=== PATIENT | female | born 1935 | race Caucasian/White ===

== ENCOUNTER 2024-04-04 21:10 | Inpatient (IN) | payer OTHER, SELFPAY ==
[2024-04-04 17:00] VITALS: BP 119/59
[2024-04-04 17:05] VITALS: BMI 35.0
--- NOTE | 2024-04-04 17:53 | EDRN ---
Received patient on stretcher with c/o right hip pain after she tripped and fell. Patient stated that she was carrying in grocery bags. Patient is not sure if she hit her head. Patient is on Eliquis. Patient also with c/o left hip pain when she
tries to move her right leg.
[2024-04-04 18:00] VITALS: BP 108/93
--- NOTE | 2024-04-04 18:11 | ED.GENMED ---
History of Present Illness
General
Chief Complaint: Fall
Time Seen by Provider: 04/04/24 17:34
Travel History
Have you had any contact with someone who has COVID-19?: No
Do you have any symptoms of coronavirus? Fever > 100 degrees, chills, cough, shortness of breath, sore throat, loss of taste or smell, muscle aches, or headache?: No
History of Present Illness
History of Present Illness:
88-year-old female with history of A-fib on Eliquis presents to the emergency department for evaluation after a fall, she lost her balance and fell onto her right side, did strike her head. She is on Eliquis and took this morning. Pain is
predominantly to the right groin. She is unable to move the right leg. Denies any loss of consciousness, vision changes, neck pain, chest pain, or shortness of breath.
Past History
Past History
ED Past Medical History: Other (Mitral regurgitation)
ED Past Surgical History: Bowel resection, Cardiac (Stent) and Cholecystectomy
Social History
Personal:
Living: with family
Review of Systems
Review of Systems
Allergies reviewed?: Yes
All Other Systems: ROS reviewed and negative except as documented in HPI and ROS
Phy Exam
Physical Exam
Physical Exam:
GEN: Well appearing, NAD, WDWN
Eyes: PERRLA, EOMs intact, no scleral icterus
HENT: NCAT, oral mucosa moist
Lungs: CTAB, no wheezes, rales, rhonchi, normal chest wall excursion
Cardiac: RRR, no M/R/G, no peripheral edema. Radial pulses 2+ bilat
Abdomen: S, NT, ND, NABS, no masses or hepatosplenomegaly
Neuro: Alert and oriented x 3, nerve deficits, bilateral upper extremity strength is hollis. Unable to assess the right lower extremity secondary to suspected hip fracture
MSK: Obvious shortening and external rotation of the right hip
Skin: No rashes, petechiae. Normal color, no pallor or jaundice.
Psych: Calm, cooperative, proper hygiene
Course
Orders/Labs/Results
Orders:
Orders
04/04/24 Dinner
Regular
At Your Request: Full Participation
04/04/24 18:10
CT Head W/o Iv Contrast Urgent
Comment:
Reason For Exam: fall head injury
CR Hip - RT w/wo Pel 2-3 Vw* Urgent
Comment:
Reason For Exam: fall
Include a pelvis x-ray?: Yes
04/04/24 18:29
Complete Blood Count/With Diff Urgent
Comprehensive Metabolic Panel Urgent
04/04/24 18:39
Morphine Sulfate 4 mg IV NOW STA
04/04/24 18:42
0.9% Sodium Chloride 500 ml [Nss] 500 ml IV BOLUS
04/04/24 20:54
EKG [Electrocardiogram (*1)] Urgent
Reason for Study: PreOp
04/04/24 20:55
ORTHOPEDIC CONSULT Routine
Consulting Provider: Erwin Iglesias
Was physician already notified: Yes
Reason for consult: fall right femur
04/04/24 20:56
Admit/Transfer Patient As Directed
Co-Sign Provider:
Level of Care: Inpatient admission
Assign to:: Telemetry
Physician / Group: karina hernandez
Diagnosis: mechan fall w/right femoral fx, afib on eliquis
Reason for Telemetry: Arrhythmia
Date to Stop Telemetry: 04/07/24
Time to Stop Telemetry: 11:00
Reason for Hospitalization: mechan fall w/right femoral fx, afib on eliquis
Expected length of stay greater than two midnights?: Yes
ELOS- Estimated Length of Stay in days: 4
I certify the patient meets the requirements for IP care: Yes
04/04/24 20:57
Code Status As Directed
Resuscitation Status: Full Code
04/04/24 22:12
Acetaminophen [Tylenol] 650 mg PO Q4HPRN PRN
Bisacodyl [Dulcolax] 10 mg RECTAL [id number] PRN
Docusate W/Senna [Senokot-S] 1 tablet PO BIDPRN PRN
Morphine Sulfate 2 mg IV Q4HPRN PRN
Morphine Sulfate 4 mg IV Q4HPRN PRN
Ondansetron Injectable [Zofran] 4 mg IV Q6HPRN PRN
Polyethylene Glycol Powder [Miralax] 17 grams PO DAILYPRN PRN
04/04/24 22:12
Activity As Directed
Activity Level: Bedrest
Intake/ Output As Directed
Frequency: Per unit guidelines
Pneumatic Compression Sleeves As Directed
Type: Knee high
Vital Signs As Directed
Frequency: Per unit guidelines
Ot Eval And Treat Routine
Pt Eval And Treat Routine
Activity Level: Bedrest
DX Deep Vein Thrombosis Video Routine
04/04/24 22:30
Atorvastatin [Lipitor] 30 mg PO HS
04/05/24 06:00
Basic Metabolic Panel IN AM
Complete Blood Count/With Diff IN AM
04/05/24 08:00
Ascorbic Acid [Vitamin C] 1,000 mg PO DAILY
Ezetimibe [Zetia] 10 mg PO DAILY
Lactobac/Bifidobac [Visbiome] 1 cap PO DAILY
Metoprolol Xl [Toprol Xl] 25 mg PO DAILY
Thyroid [[place] Thyroid] 60 mg PO DAILY
Zinc Sulfate 2,200 mg PO DAILY
04/06/24 Breakfast
NPO
Allow oral meds: Yes
Allow clear liquids: No
NPO with Ice Chips: No
Basic Metabolic Panel IN AM
Complete Blood Count/With Diff IN AM
04/07/24 06:00
Basic Metabolic Panel IN AM
Complete Blood Count/With Diff IN AM
04/07/24 11:00
DC Protocol for Telemetry ONCE
Abnormal Lab Results
04/04/24
18:29
MCHC 32.5 L g/dL
(33.0-37.0)
Absolute Neuts (auto) 6.6 H 10^3/uL
(1.4-6.5)
Absolute Monos (auto) 0.7 H 10^3/uL
(0.1-0.6)
Lymphocytes % 18.3 L %
(20.5-51.1)
Chloride 108 H mmol/L
(98-107)
BUN 20 H mg/dl
(7-17)
Calcium 7.9 L mg/dl
(8.4-10.2)
Total Protein 5.6 L g/dl
(6.3-8.2)
Albumin 3.1 L g/dl
(3.5-5.0)
04/04/24 18:29
04/04/24 18:29
Vital Signs
Initial and Last Documented VS:
Initial Vital Signs
Temp Pulse Resp BP Pulse Ox
97.7 F 83 22 119/59 93
04/04/24 17:00 04/04/24 17:00 04/04/24 17:00 04/04/24 17:00 04/04/24 17:00
Last Documented Vital Signs
Temp Pulse Resp BP Pulse Ox
98.1 F 90 16 130/62 96
04/04/24 22:36 04/04/24 22:36 04/04/24 22:36 04/04/24 22:36 04/04/24 22:36
MDM/Problems Addressed
MDM/Problems Addressed:
X-ray of the right hip and pelvis independently interpreted by shows a comminuted and displaced right intertrochanteric fracture. Orthopedics was made aware, tentatively plan for operating intervention tomorrow. Will admit to the hospitalist
service for further medical clearance.
*Critical Care Note
Total Time (30-74mins, 75-104mins- exclusive of procedures): Not Applicable
ED Attending Note
-
Portions of this chart may have been created with voice recognition software.� Occasional wrong word or��sound alike� substitutions may have occurred due to the inherent limitations of voice recognition software.
Discharge Plan
Departure
Patient Disposition: Admit
Date of Disposition: 04/04/24
Time of Disposition: 20:10
Admit to: Med/Surg
Presentation/result/management discussed w/ accepting MD/DO: Hospitalist
Discharge Problem:
Closed intertrochanteric fracture of right femur
Interventions
Interventions:
*Risk Screen - Suicide Last Done: 04/04/24 17:27
*General Assessment Last Done: 04/04/24 17:27
*Neglect/Abuse Screening Last Done: 04/04/24 17:27
ED- Fall Risk Assessment Last Done: 04/04/24 17:27
*ED COVID-19 Vaccine History Last Done: 04/04/24 17:27
*Nursing Disposition Last Done: 04/04/24 21:58
ED-Musculoskeletal Assessment Last Done: 04/04/24 18:40
ED- Neurological Assessment Last Done: 04/04/24 17:27
ED-Skin Assessment Last Done: 04/04/24 17:27
Discharge Date and Time
Discharge Date/Time: 04/04/24 21:59
[2024-04-04 18:38] LABS: % Basophils 0.6 % (0-2); % Immature Granulocytes 0.4 % (0-0.5); % Lymphocytes 18.3 % (20.5-51.1); % Monocytes 7.3 % (1.7-9.3); % Neutrophils 72.4 % (42.2-75.2); Absolute Basophils 0.1 10^3/uL (0-0.2); Absolute Eosinophils 0.1 10^3/uL (0-0.7); Absolute Lymphocytes 1.7 10^3/uL (1.2-3.4); Absolute Monocytes 0.7 10^3/uL (0.1-0.6); Absolute Neutrophils 6.6 10^3/uL (1.4-6.5); Hematocrit 41.5 % (37.0-47.0); Hemoglobin 13.5 g/dL (12.0-16.0); Mean Corp Hgb Conc. 32.5 g/dL (33.0-37.0); Mean Corpuscular Volume 95.4 fL (81.0-99.0); Mean Platelet Volume 9.7 fL (7.4-10.4); Nucleated Red Blood Cells % 0 %; Platelet Count 264 10^3/uL (130-400); Red Blood Cell Count 4.35 10^6/uL (4.20-5.40); Red Cell Dist. Width 14.5 % (11.5-14.5); White Blood Cell Count 9.1 10^3/uL (4.8-10.8)
[2024-04-04 18:49] LABS: ALT (SGPT) 20 U/L (0-35); AST (SGOT) 23 U/L (14-36); Albumin 3.1 g/dl (3.5-5.0); Alkaline Phosphatase 74 U/L (38-126); Blood Urea Nitrogen 20 mg/dl (7-17); Calcium 7.9 mg/dl (8.4-10.2); Carbon Dioxide 26 mmol/L (22-30); Chloride 108 mmol/L (98-107); Estimated Creatinine Clearance 71 ml/min; Glucose 83 mg/dl (70-99); Potassium 3.9 mmol/L (3.5-5.1); Sodium 138 mmol/L (135-145); Total Bilirubin 0.5 mg/dl (0.2-1.3); Total Protein 5.6 g/dl (6.3-8.2); eGFR > 60.00
[2024-04-04 19:00] VITALS: BP 98/63
[2024-04-04] MEDS: MORPHINE SULFATE 4 MG IV (19:08)
[2024-04-04] MEDS: NSS 500 IV (19:11)
--- NOTE | 2024-04-04 20:21 | HPS.HSE ---
Family Physician
-
Family Physician: Tory Pollock
Chief Complaint
-
Fall, right hip pain
History of Present Illness
88-year-old female reports she lost her balance while pulling groceries falling on her right side and did strike her head on hardwood floor. She denies any loss of consciousness but is complaining of pain in the right groin and right leg. In the
ER she was noted to have a right intertrochanteric femur fracture. She reports taking her Eliquis this morning at 10 AM 04/04/2024. She denies headache, blurred vision, neck pain, chest pain, palpitations, shortness of breath, cough, abdominal pain,
nausea, vomiting, diarrhea, urinary symptoms. She does have external rotation of her right lower extremity with +2 distal dorsal pedal pulses and sensation intact
She has past medical history of paroxysmal A-fib on current Eliquis, TIA, HTN, HLD, mitral regurgitation, bowel resection, CAD with cardiac stent 2005, chronic ambulatory dysfunction reports uses her to walk, hypothyroidism.
Medical History
Past Medical History
Past Medical History: Reports Other
Additional Past Medical History:
A-fib on current Eliquis
HTN
HLD
mitral regurgitation
bowel resection
CAD with cardiac stent 2005
ecoli sepsis 2005
Tia
hypothyroidism
Past Surgical History: Reports Other
Additional Past Surgical History:
CAD cardiac stent
Cholecystectomy
Bowel resection 2/2 diverticulitis
Social History
Tobacco: Non-smoker
Alcohol: None
Drug: None
Personal:
Living: With Family ( )
Employment: Retired
Family History
Family History: Other (mother cva )
Allergies / Home Medications
Allergies reflects when Allergies were last updated in [facility].
Home Medications with original date entered in [facility]
Allergy/Medication List:
Allergies
Allergy/AdvReac Type Severity Reaction Status Date / Time
Penicillins Allergy Rash Verified 04/04/24 17:02
'myocins' Allergy Unknown Uncoded 04/04/24 17:02
Home Medications
Lactobac no.2-Bifidobac no.1-S. thermo 112.5 billion cell capsule (Visbiome) 1 cap PO DAILY 04/04/24
apixaban 5 mg tablet (Eliquis) 5 mg PO BID 04/04/24
ascorbic acid (vitamin C) 1,000 mg tablet (Vitamin C) 1,000 mg PO DAILY 04/04/24
coenzyme Q10 100 mg capsule (CoQ-10) 100 mg PO Q72H 04/04/24
ezetimibe 10 mg tablet 10 mg PO DAILY 04/04/24
losartan 50 mg tablet 50 mg PO QPM 04/04/24
metoprolol succinate 25 mg tablet,extended release 24 hr 25 mg PO DAILY 04/04/24
simvastatin 20 mg tablet 60 mg PO HS 04/04/24
therapeutic multivitamin 1 tab PO DAILY 04/04/24
thyroid (pork) 60 mg tablet ([place] Thyroid) 60 mg PO DAILY 04/04/24
zinc sulfate 50 mg zinc (220 mg) capsule 50 mg PO DAILY 04/04/24
Review of Systems
-
History Source: Patient and Family (, daughter and son-in-law at bedside)
A 12 point ROS was completed and negative except as noted: Yes
Constitutional: Denies Fever, Fatigue or Chills
EENT: Denies Sore Throat or Runny Nose
Respiratory: Denies Cough or Trouble Breathing
Cardiac: Denies Chest Pain, Diaphoresis, Palpitations or Syncope
Abdomen/GI: Denies Abdominal Pain, Nausea, Vomiting, Diarrhea, Constipated, Bloody Stools or Black Stools
: Denies Dysuria, Frequency, Flank Pain, Incontinence, Difficulty Voiding or Urgency
Musculoskeletal: Reports Joint Pain (Right hip) and Other (Right leg with external rotation); Denies Edema
Physical Exam
Vital Signs
Vital Signs
Temp Pulse Resp BP Pulse Ox
97.7 F 75 19 98/63 98
04/04/24 17:00 04/04/24 19:15 04/04/24 19:15 04/04/24 19:00 04/04/24 19:15
Physical Exam
General: Comfortable and Conversant; No Pain, Fever or Chills
HEENT: NormoCephalic, Anicteric, Moist mucous membranes, PERRLA, [place] Conjunctivae, No Ptosis and Neck Nontender
Respiratory: Clear; No Wheezes, Rales or Rhonchi
Cardiac: S1/S2, Regular Rhythm and Murmur (2/6 systolic); No Rub, Gallop or Peripheral Edema
Breast: Deferred by me
GI: Soft, Non Tender, Non Distended, Normal Bowel Sounds and No Hepatosplenomegaly
Rectal: Deferred by Provider
Genito-urinary: Deferred by me
Musculoskeletal: No Clubbing, No Cyanosis, No Edema and Other (external rotation of her right lower extremity with +2 distal dorsal pedal pulses and sensation intact)
Skin: Warm and Dry; No Rash or Jaundice
Neuro: AO x 3, Nonfocal/grossly intact, Cranial Nerves Intact, No Sensory Deficits and Other (External rotation right lower extremity secondary to right femur fracture); No Slurred Speech, Facial Droop or Tremors
Psych: Calm
Laboratory Results
-
04/04/24 18:29
04/04/24 18:29
Laboratory Results
Total Bilirubin 0.5 mg/dl (0.2-1.3) 04/04/24 18:29
AST 23 U/L (14-36) 04/04/24 18:29
ALT 20 U/L (0-35) 04/04/24 18:29
Alkaline Phosphatase 74 U/L (38-126) 04/04/24 18:29
Impression/Plan
-
Impression/plan:
Admit to telemetry
#Right femur intertrochanteric fracture
#Chronic ambulatory dysfunction
-N.p.o. after midnight on 04/05/2024 for OR on 04/06/2024
-Regular diet 04/04 - 04/05/2024
-IV morphine as needed pain, Tylenol as needed
-IV Zofran as needed
-IV 1 L NSS given in ER
-Check EKG
-PT/OT/case management consult
Right hip x-ray: Acute comminuted intertrochanteric fracture of the right femur
CT head: No acute intracranial abnormalities. Moderate diffuse cortical and cerebellar atrophy
#Hypotension secondary to morphine
BP 98/63
IV NSS 500 cc given in ER
-Hold losartan 50 mg at bedtime
-Continue metoprolol succinate 25 mg daily with hold parameters
#Atrial fibrillation-paroxysmal
-Hold Eliquis last dose was 04/04/2024 in a.m.
-Patient follows with cardiology�Dr. Fajardo at [facility]
#CAD/cardiac stents x1 2005
-Continue beta-leonardo, statin
#HLD
-Continue Zetia 10 mg daily, simvastatin 60 mg at bedtime
#Hx TIA
Continue statins, hold current Eliquis for upcoming surgery
#Hypothyroidism
-Continue [place] Thyroid 60 mg daily
#Mitral regurgitation hx
#Diverticulitis status post bowel resection Hx
DVT prophylaxis
SCDs, hold current Eliquis
Full code per patient with daughter Thuy at bedside [phone] please call for any updates
--- NOTE | 2024-04-04 20:32 | W.PN.UPDATE ---
Addendum entered and electronically signed by Brennon Conley MD 04/04/24 21:18:
Correction:
Acute RIGHT ( not Left) comminuted intertrochanteric fracture of the femur
Original Note:
Update Note
Progress Note Update
This note serves as an addendum to the H&P by technical rep SAADIA Daniella JOSÉ
HPI
88F on chronic Eliquis for Prx AF seen at ER for s/p fall and evaluation:
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
- reports loss balance and fall onto Rt hip plus strike head
- Denied prodromal symptoms. Denied LoC
- Immediately pain at Rt groin
- Asso. with acute ambulatory dysfunction
- last dose of Eliquis at 10 AM
HX TIA and Prx AF is the reason for chr Eliquis
HX AZ during E Coli UTI with sepsis; Not on ASA
ROS:
Denies altered vision
Denied neck pain
PMHX
CAD with stent
Mitral regurgitation
PSHX:
Bowel resection, Cardiac (Stent) and Cholecystectomy
SHX:
Personal:
Living: with family
Reviewed VS: unremarkable VSS except BP 98/63
PE
Gen: Not toxic, NAD,
HEENT: TARAN, aniceric, symmetric face
Neck: supple. No cervical tenderness
Lungs: symmetric AE. CTA
Cor: RRR S1 S2. No murmur.
Abdomen: soft. NT. NG. NRT. POS BS
ACCOUNTANT PROPERTY: AAO3, NFND
MS: shortening and external rotation of the right hip
Psych: Calm, cooperative,
Data
unremarkable CBC
Cl 108
BUN 20
Nl Cr
Ca 7.9: Corrected Ca 8.6 for Alb 3.1
CR Hip - RT w/wo Pel 2-3 Vw
Acute comminuted intertrochanteric fracture of the right femur
HCT
There are no focal or acute intracranial abnormalities.
There is moderate diffuse cortical and cerebellar atrophy.
Pending EKG
NO PRIOR hospitalist admission:
ASSESSMENT & PLAN
Pending Rx reconciliation
Acute Lt comminuted intertrochanteric fracture of the right femur
RCRI: Class II risk - 6% 30 day risk of , AZ or cardiac arrest
Chr Eliquis: last dose at 10AM 04/04/24, Eliquis for HX TIA and Prx AF
- Held Eliquis
- Medically acceptable to proceed after Eliquis washout
- Benefits of ORIF outweigh the risk
- Allow PO diet for now
- Fx set protocol : pain control, Antiemetics PRN
- Ortho consulted: OR will be on Sunday per Ortho
Borderline hypotension
- IVF and f/u BP
- Held all anti HTN if she is on
HX AZ during E Coli UTI with sepsis
HX CAD with stents
No CP. No SoB
- P card at [facility]
- Not on ASA
- DCA card consult for gabi op
HX Prx AF; Clinically in regular rhythm
- Pending EKG
DVT Px: SCD
Code: Full
IP TLM
[2024-04-04 22:36] VITALS: BP 130/62
[2024-04-04 22:37] VITALS: BMI 35.5
[2024-04-04] MEDS: LIPITOR 30 MG PO (22:46)
[2024-04-04 23:54] VITALS: BP 123/63
[2024-04-05 00:09] VITALS: BMI 35.5
[2024-04-05] MEDS: MORPHINE SULFATE 4 MG IV ×3 (00:27→15:16)
[2024-04-05 03:38] VITALS: BP 92/48
--- NOTE | 2024-04-05 06:51 | CON.ORTHO ---
Consultation
-
Date/Time Consultation Requested: 04/04/2024 815 PM
Date/Time Consultation Performed: 04/05/2024 630 AM
Requesting Provider: Primary
Performing Provider: Harris
Reason for Consultation: right hip fracture
Consultation - Orthopedics
History
HPI 88-year-old female history of A-fib on Eliquis presented to the emergency department status post mechanical fall at home with complaints of right hip pain and inability to bear weight. She was subsequently diagnosed with a right
peritrochanteric femur fracture admitted to the medical service. Orthopedics was consulted for further evaluation and treatment. Patient reports that she was at home carrying some groceries when she tripped and fell making a turn into her kitchen.
She localizes pain to the right groin and hip region this morning. Pain is made worse with direct palpation affected area and attempted ambulation. Pain improves at rest. She denies any associated numbness or tingling. She does report that she
has had some balance issues and has had some generalized weakness and pain in her leg for quite some time. She has done outpatient physical therapy in the past. She occasionally uses assistive devices for ambulatory assistance but is typically a
community ambulator.
Allergies / Home Medications
Past medical history: A-fib, coronary artery disease status postcardiac stenting
Past surgical history: Bowel resection, cardiac stents, cholecystectomy
Social history: Lives at home with her
Family history: Not pertinent
Allergy/AdvReac Type Severity Reaction Status Date / Time
Penicillins Allergy Rash Verified 04/04/24 17:02
'myocins' Allergy Unknown Uncoded 04/04/24 17:02
�Medication �Instructions �Recorded
Lactobac no.2-Bifidobac no.1-S. 1 cap PO DAILY 04/04/24
thermo 112.5 billion cell capsule
(Visbiome)
apixaban 5 mg tablet (Eliquis) 5 mg PO BID 04/04/24
ascorbic acid (vitamin C) 1,000 mg 1,000 mg PO DAILY 04/04/24
tablet (Vitamin C)
coenzyme Q10 100 mg capsule 100 mg PO Q72H 04/04/24
(CoQ-10)
ezetimibe 10 mg tablet 10 mg PO DAILY 04/04/24
losartan 50 mg tablet 50 mg PO QPM 04/04/24
metoprolol succinate 25 mg 25 mg PO DAILY 04/04/24
tablet,extended release 24 hr
simvastatin 20 mg tablet 60 mg PO HS 04/04/24
therapeutic multivitamin 1 tab PO DAILY 04/04/24
thyroid (pork) 60 mg tablet 60 mg PO DAILY 04/04/24
([place] Thyroid)
zinc sulfate 50 mg zinc (220 mg) 50 mg PO DAILY 04/04/24
capsule
Vital Signs / Lab Results
Temp Pulse Resp BP Pulse Ox
98.7 F 84 16 92/48 100
04/05/24 03:38 04/05/24 03:38 04/05/24 03:38 04/05/24 03:38 04/05/24 03:38
10 point review systems reviewed and negative unless otherwise stated
General: Pleasant, no acute distress, at rest
Musculoskeletal right lower extremity
Skin intact, no erythema or ecchymotic staining
Extremity is shortened externally rotated
Pain is palpation of her groin and lateral trochanteric flare
Positive EHL, FHL, ankle dorsiflexion, plantarflexion
Sensation grossly tact light touch in all distributions distally
No other areas of bony tenderness palpation or crepitation of long bones and joints on tertiary examination
Diagnostic studies
X-rays right hip reveal a displaced peritrochanteric femur fracture
Assessment / Plan
88-year-old female on Eliquis status post mechanical fall with right peritrochanteric femur fracture. I had a long detailed discussion the patient regarding diagnosis and treatment options. We discussed postsurgical and nonsurgical options. After
discussion of use elected to proceed with operative fixation of right peritrochanteric femur fracture. We discussed risks benefits and alternatives to surgery. We discussed the usual expected perioperative and postoperative course. After
discussion verbal consent was obtained. Will plan obtain written informed consent prior to surgery. Given patient's Eliquis use, will wait approximately 48 hours after last dose. Plan for or tomorrow morning
Nonweightbearing right lower extremity
PT OT: Deferred to postoperative setting
DVT prophylaxis: Hold Eliquis, hold DVT prophylaxis in a.m. in preparation for OR
N.p.o. at midnight
Medical management per primary team
Plan: 2 OR tomorrow for operative fixation right hip fracture pending medical clearance and OR availability
[2024-04-05] MEDS: VISBIOME 1 CAP PO ×2 (07:51)
[2024-04-05] MEDS: VITAMIN C 1000 MG PO (07:51)
[2024-04-05 07:55] VITALS: BP 99/49
[2024-04-05] MEDS: ZETIA 10 MG PO (07:55)
[2024-04-05] MEDS: NON-FORMULARY ITEM 1 UNIT PO (07:57)
[2024-04-05] MEDS: TOPROL XL PO (08:05)
[2024-04-05] MEDS: ZINC SULFATE 220 MG PO (08:05)
--- NOTE | 2024-04-05 08:28 | PTCARENOTE ---
Received patient on stretcher with c/o right femoral fx from ED on 04/04 at 22:00. Patient's nighttime dose of Eliquis held for tentative surgery on Sunday. Pt A0x3, bed in a low position, call light in reach.
[2024-04-05 08:32] LABS: % Basophils 0.4 % (0-2); % Eosinophils 0.2 % (0-6); % Immature Granulocytes 0.6 % (0-0.5); % Monocytes 8.9 % (1.7-9.3); % Neutrophils 79.9 % (42.2-75.2); Absolute Immature Granulocytes 0.1 10^3/uL (0-0.05); Absolute Lymphocytes 1.1 10^3/uL (1.2-3.4); Absolute Monocytes 0.9 10^3/uL (0.1-0.6); Absolute Neutrophils 8.4 10^3/uL (1.4-6.5); Hematocrit 32.2 % (37.0-47.0); Hemoglobin 10.9 g/dL (12.0-16.0); Mean Corp Hgb Conc. 33.9 g/dL (33.0-37.0); Mean Corpuscular Hgb 30.5 pg (27.0-31.0); Mean Corpuscular Volume 90.2 fL (81.0-99.0); Nucleated Red Blood Cells % 0 %; Platelet Count 226 10^3/uL (130-400); Red Blood Cell Count 3.57 10^6/uL (4.20-5.40); Red Cell Dist. Width 14.4 % (11.5-14.5); White Blood Cell Count 10.6 10^3/uL (4.8-10.8)
[2024-04-05 08:40] LABS: Blood Urea Nitrogen 20 mg/dl (7-17); Calcium 8.4 mg/dl (8.4-10.2); Carbon Dioxide 24 mmol/L (22-30); Chloride 107 mmol/L (98-107); Estimated Creatinine Clearance 72 ml/min; Glucose 127 mg/dl (70-99); Potassium 4.5 mmol/L (3.5-5.1); Sodium 135 mmol/L (135-145); eGFR > 60.00
--- NOTE | 2024-04-05 08:47 | CON.CAR ---
Consultation
Consultation Request
Date/Time Consultation Requested: 04/05/2024 at 7 AM
Date/Time Consultation Performed: 04/05/2024 at 8:45 AM
Requesting Provider: Dr. Erwin Iglesias
Performing Provider: Yg Hernandez MD
Reason for Consultation: Preoperative assessment
Medical History
-
Chief Complaint: Right hip pain
History of Present Illness:
The patient is a pleasant 88-year-old woman who lives independently with her and had a mechanical fall at home, thereafter presenting with a right peritrochanteric femoral fracture. She is followed by Dr. Ugo Lennon of [facility]
cardiology for CAD with a history of PCI, and permanent atrial fibrillation/atypical atrial flutter, PVCs, hypercholesterolemia and hypertension. Patient did have closed head trauma but unremarkable and CT. presently outside of hip pain she offers
no complaints. She denies cardiac symptoms but is limited in her activity and walks in the [employer] daily holding onto a shopping cart. She denies chest pain. She denies recent cardiac testing.
Past Medical History
Past Medical History: Arrhythmias (Permanent atrial fibrillation/atypical atrial flutter, PVCs), CAD (With history of PCI, unknown vessel, 2006), HTN, Hypercholesterolemia, Hypothyroidism, Valvular Disease (Mitral regurgitation) and Other (History
of TIA, peripheral neuropathy)
Past Surgical History: Bowel Resection (For diverticulitis) and Cholecystectomy
Social History
Tobacco: Non-Smoker
Alcohol: None
Drug: None
Personal:
Living: With Family
Employment: Retired (Worked for [employer])
Family History
Family History: Reviewed & Not Pertinent
Allergies / Home Medications
Allergy/AdvReac Type Severity Reaction Status Date / Time
Penicillins Allergy Rash Verified 04/04/24 17:02
'myocins' Allergy Unknown Uncoded 04/04/24 17:02
�Medication �Instructions �Recorded �Confirmed �Type
Lactobac no.2-Bifidobac no.1-S. 1 cap PO DAILY 04/04/24 04/04/24 History
thermo 112.5 billion cell capsule
(Visbiome)
apixaban 5 mg tablet (Eliquis) 5 mg PO BID 04/04/24 04/04/24 History
ascorbic acid (vitamin C) 1,000 mg 1,000 mg PO DAILY 04/04/24 04/04/24 History
tablet (Vitamin C)
coenzyme Q10 100 mg capsule 100 mg PO Q72H 04/04/24 04/04/24 History
(CoQ-10)
ezetimibe 10 mg tablet 10 mg PO DAILY 04/04/24 04/04/24 History
losartan 50 mg tablet 50 mg PO QPM 04/04/24 04/04/24 History
metoprolol succinate 25 mg 25 mg PO DAILY 04/04/24 04/04/24 History
tablet,extended release 24 hr
simvastatin 20 mg tablet 60 mg PO HS 04/04/24 04/04/24 History
therapeutic multivitamin 1 tab PO DAILY 04/04/24 04/04/24 History
thyroid (pork) 60 mg tablet 60 mg PO DAILY 04/04/24 04/04/24 History
([place] Thyroid)
zinc sulfate 50 mg zinc (220 mg) 50 mg PO DAILY 04/04/24 04/04/24 History
capsule
Review of Systems
-
All other systems: Negative unless noted
Physical Exam
Vital Signs
Temp Pulse Resp BP Pulse Ox
37.2 C 73 18 95/45 98
04/05/24 07:55 04/05/24 08:05 04/05/24 07:55 04/05/24 08:05 04/05/24 07:55
Lab Results
04/05/24 08:19
04/05/24 08:19
Physical Exam
General: No Apparent Distress and Comfortable (Although she says her hip hurts)
HEENT: Normocephalic
Respiratory: Clear
Cardiac: Irregular Rhythm and Murmur (Probable mild aortic sclerosis/stenosis and mild mitral regurgitation)
GI: Other (Obese with umbilical hernia)
Musculoskeletal: No Edema and Other (External rotation of right hip)
Skin: Warm and Dry
Neuro: AO x 3
Psych: Calm
Impression / Plan
-
Impression:
Right peritrochanteric femoral fracture
Permanent atrial fibrillation/atypical flutter
CAD status post PCI
PVCs
Hypertension
Hypercholesterolemia
History of TIA
Hypothyroidism
Mitral regurgitation
Peripheral neuropathy
Plan:
Despite her atrial fibrillation, presumed mild aortic stenosis/regurgitation, and remote PCI, she appears stable and can undergo ORIF of the right hip or VINNY at acceptable cardiac risk. RCA RI is elevated, so cardiac risk will be somewhat elevated
perioperatively but is far from prohibitive. She has no cardiac symptoms within the limits imposed by her ADL dysfunction.
Continue to hold losartan as her blood pressure is reasonable at present. Continue metoprolol. Resume Eliquis when safe from a surgical standpoint.
We will check an echocardiogram postoperatively to further risk stratify.
We will continue to follow.
Data Reviewed
-
EKG: Tracing Personally Visualized and interpreted
Radiology: Image Personally Visualized and interpreted and Report Reviewed by me
CT Scan: Report Reviewed by me (Head CT with cerebral atrophy)
Labs: Labs Reviewed by me (Hemoglobin 10.9, white count 10.6, platelets 226, BUN and creatinine 20 and 0.6)
Old Records: Reviewed
[2024-04-05 11:00] VITALS: BP 117/76
--- NOTE | 2024-04-05 11:48 | W.PN.HOSP.TC ---
Today's Communication/Plan
-
OR tomm
trend bp
hold eliquis
Assessment / Plan
Assessment / Plan
#Right femur intertrochanteric fracture
#Chronic ambulatory dysfunction
-N.p.o. after midnight on 04/05/2024 for OR on 04/06/2024
-Regular diet 04/04 - 04/05/2024
-IV morphine as needed pain, Tylenol as needed
-IV Zofran as needed
-PT/OT/case management consult post op
Right hip x-ray: Acute comminuted intertrochanteric fracture of the right femur
CT head: No acute intracranial abnormalities. Moderate diffuse cortical and cerebellar atrophy
-Cards for pre-op
#Hypotension secondary to morphine
-Hold losartan 50 mg at bedtime for now .Can be restarted if BP starts to trend up
-Continue metoprolol succinate 25 mg daily with hold parameters
#Atrial fibrillation-paroxysmal
-Hold Eliquis last dose was 04/04/2024 in a.m.
-Patient follows with cardiology�Dr. Fajardo at [facility]
#CAD/cardiac stents x1 2005
-Continue beta-leonardo, statin
#HLD
-Continue Zetia 10 mg daily, simvastatin 60 mg at bedtime
#Hx TIA
Continue statins, hold current Eliquis for upcoming surgery
#Hypothyroidism
-Continue [place] Thyroid 60 mg daily
#Mitral regurgitation hx
#Diverticulitis status post bowel resection Hx
DVT prophylaxis
SCDs, hold current Eliquis
Full code
Anticipated Discharge: > 48 hours
Subjective/Interval History
-
Date of Service: April 05, 2024
states pain is controlled with meds
no chest pain
Objective Data
-
Labs:
Laboratory Results
04/05/24
08:19
WBC 10.6
Hgb 10.9 L
Hct 32.2 L
Plt Count 226
Sodium 135
Potassium 4.5
Chloride 107
Carbon Dioxide 24
BUN 20 H
Creatinine 0.6
Glucose 127 H
Calcium 8.4
Vital Signs:
Vital Signs
Temp Pulse Resp BP Pulse Ox
98.4 F 78 16 117/76 97
04/05/24 11:00 04/05/24 11:00 04/05/24 11:00 04/05/24 11:00 04/05/24 11:00
I&O
04/04/24 04/05/24 04/06/24
06:59 06:59 06:59
Output Total 450 / 450
Balance -450 / -450
--- NOTE | 2024-04-05 12:22 | CM ---
Initial assessment completed with patient with and daughter in room. Patient lives with her in 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
no history of psychiatric hospitalizations. Pharmacy is [facility] in [place] and PCP is Dr. Tory Pollock. OR on 04/06/24. Anticipate SNF.
[2024-04-05 15:15] VITALS: BP 119/68
[2024-04-05] MEDS: MIRALAX 17 GRAMS PO (15:16)
[2024-04-05] MEDS: LR 1000 IV (15:44)
[2024-04-05 19:45] VITALS: BP 114/57
[2024-04-05] MEDS: LIPITOR 30 MG PO (20:42)
[2024-04-05] MEDS: MORPHINE SULFATE 2 MG IV (22:31)
[2024-04-05 23:55] VITALS: BP 106/58
[2024-04-06] VITALS (18 sets, daily range): BP systolic 84–176; BP diastolic 44–145; PULSE 86–102; O2SAT 97
[2024-04-06] MEDS: MORPHINE SULFATE 2 MG IV (03:22)
[2024-04-06] MEDS: LR 1000 IV (04:54)
--- NOTE | 2024-04-06 11:12 | OR.RPT ---
Operative Report
Operative Report
Anesthesia Type:
General
Operative Indications:
Right peritrochanteric femur fracture
Operative Findings :
Same with significant comminution
Complications:
None
Implants:
360 mm x 10 mm long gamma nail, 5 mm interlocking screw distally x 2, 100 mm cephalomedullary screw proximally
Procedure and Technique:
Insertion right cephalomedullary nail
INDICATIONS FOR PROCEDURE:
88-year-old female status post mechanical fall with right peritrochanteric femur fracture. She was subsequently admitted to the hospital service and orthopedics was consulted for evaluation and treatment. I had a long discussion with the patient
regarding diagnosis and treatment options. We discussed both surgical and nonsurgical options. After discussion we mutually agreed to proceed with insertion of right cephalomedullary nail. We discussed risks benefits and alternatives to surgery.
We discussed the usual and expected perioperative and postoperative course. Patient surgery was delayed 48 hours given her Eliquis use for an Eliquis washout. After discussion written informed consent was obtained.
OPERATIVE PROCEDURE:
Patient was seen and identified in the preoperative holding area. Operative extremity was marked. She was taken to the operating room where she was placed supine on fracture table. Operative extremity was placed in a well-padded fracture boot.
Contralateral extremity was secured and well-padded to the contralateral fracture post. Pulmonary reduction was performed utilizing axial traction, slight adduction and internal rotation. There was noted to be significant comminution and there was
some extension of the fracture distal to the lesser trochanter. Decision was made to proceed with long gamma nail. Operative extremity was then prepped and draped in normal sterile fashion. Timeout was performed again identifying the correct
operative extremity. Preoperative antibiotics were addressed. Proximally 5 cm incision was made proximal to the tip of the greater trochanter. Sharp dissection was carried through skin subcutaneous tissues deep fascial layer. Guidewire was
placed at the tip of the greater trochanter according to operative technique guide. Appropriate position was confirmed on orthogonal imaging and this was placed just distal to the lesser trochanter. Opening reamer was then utilized. Ball-tipped
guidewire was then passed to the level of the distal femur at the level of the proximal pole of the patella. This was measured and an 11.5 mm reamer was utilized for a 10 mm nail. Appropriately sized 10 mm long gamma nail was then inserted.
Trocar was then inserted through the aiming arm. Additional incision was made. Guidewire was passed into the femoral neck and head to appropriate depth in an attempt to minimize tip apex distance. Confirmed to be in appropriate position on
orthogonal imaging. This was measured and appropriately sized cephalomedullary screw was then inserted. Some compression was achieved to reduce the fracture. Excellent compression was achieved. Setscrew was deployed. Aiming arm was removed and
attention was turned to the distal femur. Distal interlocking screws were placed through an additional incision utilizing perfect [place] technique. Final orthogonal imaging confirmed appropriate reduction and position of the implant. Wounds were
copiously irrigated normal saline solution. They are closed in layered fashion utilizing 0 Vicryl, 2-0 Vicryl and steffanie for skin. Aquacel dressings were placed. Anesthesia was reversed and she was taken to PACU in stable condition.
Postoperative plans will include weightbearing to patient's tolerance operative extremity. Okay to resume Eliquis tomorrow for DVT prophylaxis. Plan to follow-up in office in 2 to 3 weeks repeat evaluation.
Disposition:
PACU, stable
[2024-04-06] MEDS: NSS 1000 IV ×2 (11:52→23:24)
[2024-04-06] MEDS: NON-FORMULARY ITEM PO (12:32)
[2024-04-06] MEDS: TOPROL XL PO (12:32)
[2024-04-06] MEDS: ZINC SULFATE PO (12:32)
[2024-04-06] MEDS: VITAMIN C PO (12:32)
--- NOTE | 2024-04-06 12:59 | W.PN.HOSP.TC ---
Today's Communication/Plan
-
lovenox
IVF
Monitor urinary output
post op orders per ortho
Assessment / Plan
Assessment / Plan
#Right femur intertrochanteric fracture s/p ORIF
#Chronic ambulatory dysfunction
-IV morphine as needed pain, Tylenol as needed
-IV Zofran as needed
-PT/OT/case management consult post op
-Lovenox for dvt ppx. restart eliquis pending surgery clearance
-ortho recs
#Hypotension secondary to morphine
-Hold losartan 50 mg at bedtime for now .Can be restarted if BP starts to trend up
-Continue metoprolol succinate 25 mg daily with hold parameters
-ECHO pending
#Urinary retention
-straight cath x 3
-may require sauceda
#Atrial fibrillation-paroxysmal
-Hold Eliquis last dose was 04/04/2024 in a.m.
-Patient follows with cardiology�Dr. Fajardo at [facility]
#CAD/cardiac stents x1 2005
-Continue beta-leonardo, statin
#HLD
-Continue Zetia 10 mg daily, simvastatin 60 mg at bedtime
#Hx TIA
Continue statins, hold current Eliquis for upcoming surgery
#Hypothyroidism
-Continue [place] Thyroid 60 mg daily
#Mitral regurgitation hx
#Diverticulitis status post bowel resection Hx
DVT prophylaxis
SCDs/lovenox
Full code
Anticipated Discharge: > 48 hours
Subjective/Interval History
-
Date of Service: April 06, 2024
Denies much pain
seen post op
watching tv
Objective Data
-
Vital Signs:
Vital Signs
Temp Pulse Resp BP Pulse Ox
97.3 F 96 14 98/53 91
04/06/24 12:15 04/06/24 12:15 04/06/24 12:15 04/06/24 12:15 04/06/24 12:15
I&O
04/05/24 04/06/24 04/07/24
06:59 06:59 06:59
Intake Total 1700 / 1700 110 / 110
Output Total 450 / 450 480 / 480
Balance -450 / -450 1220 / 1220 110 / 110
Physical Exam
-
General: Well Developed and No Apparent Distress
HEENT: Normocephalic, Atraumatic, Moist Mucous Membranes and Oxygen
Respiratory: Clear to Auscultation
Cardiac: Regular Rhythm and S1/S2; Negative Murmur, Rub or Gallop
GI: Soft, Nontender, Nondistended and Normal Bowel Sounds; Negative Organomegaly
Rectal: Deferred by Provider
Musculoskeletal: No Clubbing, No Cyanosis, No Edema and Other (R hip aquacell dressing -ice pack)
Skin: Negative Rash
Neuro: Awake and Nonfocal/Grossly Intact
Psych: Calm
Data Reviewed
-
Total Time Spent with Patient (in minutes): 55
[2024-04-06 13:18] LABS: % Basophils 0.2 % (0-2); % Immature Granulocytes 0.5 % (0-0.5); % Lymphocytes 2.9 % (20.5-51.1); % Monocytes 4.4 % (1.7-9.3); Absolute Immature Granulocytes 0.1 10^3/uL (0-0.05); Absolute Lymphocytes 0.5 10^3/uL (1.2-3.4); Absolute Monocytes 0.8 10^3/uL (0.1-0.6); Absolute Neutrophils 17.1 10^3/uL (1.4-6.5); Hemoglobin 9.2 g/dL (12.0-16.0); Mean Corp Hgb Conc. 34.1 g/dL (33.0-37.0); Mean Corpuscular Hgb 31.2 pg (27.0-31.0); Mean Corpuscular Volume 91.5 fL (81.0-99.0); Mean Platelet Volume 9.4 fL (7.4-10.4); Nucleated Red Blood Cells % 0 %; Platelet Count 192 10^3/uL (130-400); Red Blood Cell Count 2.95 10^6/uL (4.20-5.40); Red Cell Dist. Width 14.5 % (11.5-14.5); White Blood Cell Count 18.5 10^3/uL (4.8-10.8)
[2024-04-06 13:36] LABS: Blood Urea Nitrogen 18 mg/dl (7-17); Calcium 8.1 mg/dl (8.4-10.2); Carbon Dioxide 24 mmol/L (22-30); Chloride 100 mmol/L (98-107); Estimated Creatinine Clearance 72 ml/min; Glucose 150 mg/dl (70-99); Potassium 4.3 mmol/L (3.5-5.1); Sodium 133 mmol/L (135-145); eGFR > 60.00
[2024-04-06] MEDS: ANCEF 5 IV ×2 (15:26→21:34)
[2024-04-06] MEDS: ZETIA 10 MG PO (15:27)
[2024-04-06] MEDS: ProAmatine 10 MG PO (15:39)
[2024-04-06] MEDS: ProAmatine 5 MG PO (17:23)
--- NOTE | 2024-04-06 17:41 | PTCARENOTE ---
Patient with low blood pressures this shift. Dr. Graves notified and ordered midrodine stat and TID. Patient has also been in afib, 100-130s at rest and 150 while on bedpan or working with therapy- is asymptomatic. made aware. Nicole cath placed
at 1550 d/t urinary retention. Draining clear yellow urine.
[2024-04-06] MEDS: LIPITOR 30 MG PO (21:33)
[2024-04-07] VITALS (11 sets, daily range): BP systolic 86–132; BP diastolic 39–89
[2024-04-07 08:10] LABS: % Basophils 0.1 % (0-2); % Immature Granulocytes 0.5 % (0-0.5); % Monocytes 10.8 % (1.7-9.3); % Neutrophils 79.6 % (42.2-75.2); Absolute Immature Granulocytes 0.1 10^3/uL (0-0.05); Absolute Monocytes 1.2 10^3/uL (0.1-0.6); Mean Corp Hgb Conc. 33.3 g/dL (33.0-37.0); Mean Corpuscular Hgb 30.5 pg (27.0-31.0); Mean Corpuscular Volume 91.5 fL (81.0-99.0); Mean Platelet Volume 9.9 fL (7.4-10.4); Nucleated Red Blood Cells % 0 %; Platelet Count 182 10^3/uL (130-400); Red Blood Cell Count 2.13 10^6/uL (4.20-5.40); Red Cell Dist. Width 14.4 % (11.5-14.5); White Blood Cell Count 11.3 10^3/uL (4.8-10.8)
[2024-04-07 08:23] LABS: Hematocrit 19.5 % (37.0-47.0); Hemoglobin 6.5 g/dL (12.0-16.0)
[2024-04-07 09:06] LABS: Blood Urea Nitrogen 24 mg/dl (7-17); Calcium 7.6 mg/dl (8.4-10.2); Carbon Dioxide 27 mmol/L (22-30); Chloride 105 mmol/L (98-107); Estimated Creatinine Clearance 72 ml/min; Glucose 152 mg/dl (70-99); Sodium 134 mmol/L (135-145); eGFR > 60.00
[2024-04-07] MEDS: NON-FORMULARY ITEM 1 UNIT PO (09:12)
[2024-04-07] MEDS: TOPROL XL PO (09:13)
[2024-04-07] MEDS: ZINC SULFATE 220 MG PO (09:14)
[2024-04-07] MEDS: VISBIOME 1 CAP PO (09:14)
[2024-04-07] MEDS: VITAMIN C 1000 MG PO (09:14)
[2024-04-07] MEDS: ZETIA 10 MG PO (09:14)
[2024-04-07] MEDS: ProAmatine 5 MG PO ×3 (09:14→19:25)
--- NOTE | 2024-04-07 10:33 | W.PN.HOSP.TC ---
Addendum entered and electronically signed by Beto Lockwood MD 04/07/24 13:22:
Permanent atrial fibrillation
Addendum entered and electronically signed by Beto Lockwood MD 04/07/24 11:43:
Addendum
displaced peritrochanteric femur fracture on admission due to fall with underlying Osteopenia / osteoporosis
# Post fall/operative hemorrhagic shock secondary to fracture and subsequent surgery exacerbation by use of Eliquis
# Hyponatremia, mild
# Leukocytosis, reactive. No fever
End
Original Note:
Today's Communication/Plan
-
Give blood two units
Start Tylenol TID
c/w PT as able
Start Flomax
Assessment / Plan
Assessment / Plan
Physical Exam
-
General: Well Developed and No Apparent Distress
HEENT: Normocephalic, Atraumatic, Moist Mucous Membranes and Oxygen
Respiratory: Clear to Auscultation
Cardiac: Regular Rhythm and S1/S2; Negative Murmur, Rub or Gallop
GI: Soft, Nontender, Nondistended and Normal Bowel Sounds; Negative Organomegaly
Rectal: No rectal bleeding
Musculoskeletal: No Clubbing, No Cyanosis, No Edema and Other (R hip aquacell dressing -ice pack)
Skin: Negative Rash
Neuro: Awake and Nonfocal/Grossly Intact
Psych: Calm
#Right femur intertrochanteric fracture s/p ORIF by Dr Iglesias on 04/06/24
#Chronic ambulatory dysfunction
- change to Tylenol TID
-IV morphine as needed pain, Tylenol as needed
-IV Zofran as needed
-PT/OT/case management consult post op
-dc Lovenox for dvt ppx. restart Eliquis today
- Appreciate ortho help
# Acute blood loss anemia
Give two units of blood
Consent is signed.
#Hypotension secondary to combination of medication/ hypovolemic and hemorrhagic shock
Give two units of blood
Hold BP medication except low dose BB to avoid tachycardia
Wean off Midodrine
-ECHO is ordered.
#Urinary retention
-straight cath x 3
-s/p Nicole 04/06/24, start on Flomax, encourage ambulation.
#Atrial fibrillation-paroxysmal
-Resume Eliquis tonight
-Patient follows with cardiology�Dr. Fajardo at [facility]
#CAD/cardiac stents x1 2005
No chest pain
-Continue beta-leonardo, statin
#HLD
-Continue Zetia 10 mg daily, simvastatin 60 mg at bedtime
#Hx TIA
Continue statins, resumed Eliquis.
#Hypothyroidism
-Continue [place] Thyroid 60 mg daily
#Mitral regurgitation hx
#Diverticulitis status post bowel resection Hx
DVT prophylaxis
Total time spent to see the patient, examine the patient on the floor, review data and lab results, discuss treatment plan with patient, nursing staff around 55 minutes
Anticipated Discharge: 24 - 48 hours
Subjective/Interval History
-
Date of Service: April 07, 2024
No chest pain
No sob
No abd pain
Objective Data
-
Labs:
Laboratory Results
04/07/24
07:18
WBC 11.3 H
Hgb 6.5 L* D
Hct 19.5 L*
Plt Count 182
Sodium 134 L
Potassium 4.0
Chloride 105
Carbon Dioxide 27
BUN 24 H
Creatinine 0.6
Glucose 152 H
Calcium 7.6 L
Vital Signs:
Vital Signs
Temp Pulse Resp BP Pulse Ox
98.6 F 88 17 96/65 96
04/07/24 07:30 04/07/24 07:30 04/07/24 07:30 04/07/24 09:14 04/07/24 07:30
I&O
04/06/24 04/07/24 04/08/24
06:59 06:59 06:59
Intake Total 1700 / 1700 2089
Output Total 480 / 480 1120 / 1120
Balance 1220 / 1220 970 / 970
[2024-04-07] MEDS: FLOMAX 0.400000000000000022 MG PO (12:02)
[2024-04-07] MEDS: ProAmatine PO ×2 (12:02→17:37)
--- NOTE | 2024-04-07 12:26 | PN.CDI ---
CDI
- -
CDI:
Physician Documentation Request
Admit Date: 04/04/24 21:10
Dear Doctor Mandie,
Please review the following and provide your response in the progress notes.
Due to conflicting documentation please clarify the specificity of the atrial fibrillation
Clinical Indicators:
Cardiology consult, 04/05
#Permanent atrial fibrillation/atypical flutter
PN, 04/07
#Atrial fibrillation-paroxysmal
#...-Resume Eliquis tonight
Please clarify specificity regarding atrial fibrillation,...:
Permanent atrial fibrillation - when a decision has been made to accept the presence of AF and there is no further attempt to restore or maintain sinus rhythm
Paroxysmal atrial fibrillation - terminates spontaneously or with intervention within 7 days of onset
Other - please specify
Use of terms such as suspected, likely, concern for, or probable (associated with a specific diagnosis that is being evaluated, monitored, or treated as if it exists) are acceptable and can be coded in the inpatient setting, when documented at the
time of discharge.
Thank you,
Maria Antonia Dunn RN BSN CCDS
CDI Specialist
please contact via tiger text
Please use your independent medical judgment in providing your response.
--- NOTE | 2024-04-07 13:10 | W.PN.CARDCBS ---
Today's Communication / Plan
-
Rate control atrial fibrillation and resume anticoagulation when safer in the postoperative period
Packed red blood cell transfusion for postoperative blood loss anemia. Goal hemoglobin greater than 8 g/dL.
Monitor blood pressure trends and hold parameters placed on antihypertensive therapy
2D echocardiogram pending
Supportive postoperative care
Impression / Plan
-
Mapping Engineer: Dr. Ugo Lennon of [facility], [facility]
Impression:
Right peritrochanteric femoral fracture
Permanent atrial fibrillation/atypical flutter
CAD status post PCI
PVCs
Hypertension
Hypercholesterolemia
History of TIA
Hypothyroidism
Mitral regurgitation
Peripheral neuropathy
Plan:
Postop day 1 status post ORIF right hip following mechanical fall and right peritrochanteric femoral fracture
-Relatively hemodynamically stable without chest pain or pressure
-Blood pressures on the lower side�antihypertensive medications have been held. Metoprolol continued with hold parameters
-Postop anemia with hemoglobin this morning 6.5 g/dL. Hemoglobin on admission 13.5 g/dL.
-She is currently receiving blood transfusion. Follow hemoglobin closely.
-She has history of paroxysmal atrial fibrillation found to be in atrial fibrillation on presentation and remains in rate controlled asymptomatic atrial fibrillation. She had previously been on Eliquis anticoagulation which was held for surgery.
Would continue to hold anticoagulation until hemoglobin is stable. Discussed with orthopedics and hospitalist.
-Will continue rate control strategy and telemetry monitoring. 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 to discuss rhythm control if remains in atrial fibrillation
-History of coronary artery disease status post remote PCI. No chest pain postop. Check routine postop EKG
-Will review 2D echocardiogram previously ordered
-Will follow with you
Progress Note - Mapping Engineer
Subjective
Date of Service: April 07, 2024
Patient seen and examined with son and daughter at bedside. Overall she is in good spirits and denies specific complaints. No dizziness or lightheadedness. No chest pain or pressure. No shortness of breath. Minimal postoperative pain.
Objective
Labs:
04/07/24 07:18
04/07/24 07:18
Labs
Hgb 6.5 g/dL (12.0-16.0) L* D 04/07/24 07:18
Hct 19.5 % (37.0-47.0) L* 04/07/24 07:18
Plt Count 182 10^3/uL (130-400) 04/07/24 07:18
Sodium 134 mmol/L (135-145) L 04/07/24 07:18
Potassium 4.0 mmol/L (3.5-5.1) 04/07/24 07:18
BUN 24 mg/dl (7-17) H 04/07/24 07:18
Creatinine 0.6 mg/dL (0.6-1.0) 04/07/24 07:18
Glucose 152 mg/dl (70-99) H 04/07/24 07:18
Vital Signs and I&O:
Vital Signs
Temp Pulse Resp BP Pulse Ox
98.2 F 113 16 96/50 93
04/07/24 12:16 04/07/24 12:16 04/07/24 12:16 04/07/24 12:24 04/07/24 12:16
Vital Signs
Temp Pulse Resp BP Pulse Ox
98.2 F 113 16 96/50 93
04/07/24 12:16 04/07/24 12:16 04/07/24 12:16 04/07/24 12:24 04/07/24 12:16
Intake & Output
04/05/24 04/06/24 04/07/24 04/08/24
06:59 06:59 06:59 06:59
Intake Total 1700 / 1700 2090 / 2090 0 / 0
Output Total 450 / 450 480 / 480 1120 / 1120
Balance -450 / -450 1220 / 1220 970 / 970 0 / 0
Physical Exam
Physical Exam
General: No acute distress, AAOX3
Heart: Irregularly irregular. Positive S1/S2, 2/6 SM
Lungs: Bronchovesicular breath sounds decreased throughout but clear.
Abd: Positive BS, NT/ND, neg rebound/rigidity/guarding
Ext: Status post right ORIF with mild right ankle swelling. No significant edema of the left lower extremity
Neuro: nonfocal
[2024-04-07] MEDS: TYLENOL 1000 MG PO ×2 (17:38→21:53)
--- NOTE | 2024-04-07 18:40 | W.PN.ORTHO ---
Today's Communication / Plan
-
88-year-old female postop day 1 status post right long cephalomedullary nail fixation for right peritrochanteric femur fracture. Patient's hemoglobin was 6.5 today and she received 1 unit packed red blood cells and is planning on receiving a second
unit. Eliquis was held.
Weightbearing as tolerated right lower extremity
PT OT
Pain control
Medical management per primary team
DVT prophylaxis: Okay to resume Eliquis from orthopedic perspective when okay with medical team/cardiology team. In absence of chemical DVT prophylaxis for the time being, would recommend use of SCDs.
Plan: Follow-up outpatient in 2 to 3 weeks repeat evaluation with planned removal of steffanie
Subjective
.
.:
Patient resting comfortably supine in bed with at bedside. She does report that she was able to get to a commode today without too much difficulty. She reports that pain is well-controlled.
Vital Signs and Labs
.
Vital Signs and Labs:
Lab Results
04/07/24 07:18
04/07/24 07:18
Temp Pulse Resp BP Pulse Ox
99.4 F 105 17 132/58 97
04/07/24 15:45 04/07/24 15:45 04/07/24 15:45 04/07/24 17:37 04/07/24 15:45
Physical Exam
-
Musculoskeletal right lower extremity
Dressings clean dry and intact with very minimal bloody drainage most proximal dressing
There is moderate swelling right thigh
Positive EHL, FHL, ankle dorsiflexion, plantarflexion
Sensation gross intact to light in all distributions distally
Brisk cap refill
[2024-04-07] MEDS: LIPITOR 30 MG PO (21:53)
[2024-04-08] VITALS (9 sets, daily range): BP systolic 84–122; BP diastolic 42–57; PULSE 92; O2SAT 97
[2024-04-08 05:33] LABS: Hematocrit 27.9 % (37.0-47.0); Mean Corp Hgb Conc. 33.7 g/dL (33.0-37.0); Mean Corpuscular Hgb 30.1 pg (27.0-31.0); Mean Corpuscular Volume 89.4 fL (81.0-99.0); Mean Platelet Volume 9.8 fL (7.4-10.4); Platelet Count 184 10^3/uL (130-400); Red Blood Cell Count 3.12 10^6/uL (4.20-5.40); Red Cell Dist. Width 15.4 % (11.5-14.5); White Blood Cell Count 10.9 10^3/uL (4.8-10.8)
[2024-04-08 05:59] LABS: Blood Urea Nitrogen 19 mg/dl (7-17); Carbon Dioxide 23 mmol/L (22-30); Chloride 107 mmol/L (98-107); Estimated Creatinine Clearance 72 ml/min; Glucose 132 mg/dl (70-99); Potassium 3.7 mmol/L (3.5-5.1); Sodium 135 mmol/L (135-145); eGFR > 60.00
[2024-04-08 06:29] LABS: Hemoglobin 9.4 g/dL (12.0-16.0)
[2024-04-08] MEDS: ZETIA 10 MG PO (09:14)
[2024-04-08] MEDS: FLOMAX 0.400000000000000022 MG PO (09:15)
[2024-04-08] MEDS: TYLENOL 1000 MG PO ×3 (09:15→22:02)
[2024-04-08] MEDS: TOPROL XL 25 MG PO (09:15)
[2024-04-08] MEDS: ProAmatine PO (09:15)
[2024-04-08] MEDS: NON-FORMULARY ITEM 1 UNIT PO (09:16)
[2024-04-08] MEDS: VISBIOME 1 CAP PO (09:16)
--- NOTE | 2024-04-08 11:19 | W.PN.HOSP.TC ---
Today's Communication/Plan
-
dc planning in am
Assessment / Plan
Assessment / Plan
Physical Exam
-
General: Well Developed and No Apparent Distress
HEENT: Normocephalic, Atraumatic, Moist Mucous Membranes and Oxygen
Respiratory: Clear to Auscultation
Cardiac: Regular Rhythm and S1/S2; Negative Murmur, Rub or Gallop
GI: Soft, Nontender, Nondistended and Normal Bowel Sounds; Negative Organomegaly
Rectal: No rectal bleeding
Musculoskeletal: No Clubbing, No Cyanosis, No Edema and Other (R hip aquacell dressing -ice pack)
Skin: Negative Rash
Neuro: Awake and Nonfocal/Grossly Intact
Psych: Calm
#Right femur intertrochanteric fracture s/p ORIF by Dr Iglesias on 04/06/24
#Chronic ambulatory dysfunction
- change to Tylenol TID
-IV morphine as needed pain, Tylenol as needed
-IV Zofran as needed
-PT/OT/case management consult post op
-dc Lovenox for dvt ppx. restart Eliquis today
- Appreciate ortho help
# Acute blood loss anemia
Give two units of blood
Consent is signed.
#Hypotension secondary to combination of medication/ hypovolemic and hemorrhagic shock
Given two units of blood with no reaction. HGB at 9.4.
Resumed BB
Wean off Midodrine
-ECHO 04/07/24 showed LVEF 65-70%, mild MR, mild to moderate , mild TR, estimated pulmonary artery pressure of 42 mmHg.
#Urinary retention
-straight cath x 3
-s/p Nicole 04/06/24, start on Flomax, encourage ambulation.
#Atrial fibrillation-paroxysmal
-Resumed Eliquis. Discussed with orthopedic doctor
-Patient follows with cardiology�Dr. Fajardo at [facility]
#CAD/cardiac stents x1 2005
No chest pain
-Continue beta-leonardo, statin
#HLD
-Continue Zetia 10 mg daily, simvastatin 60 mg at bedtime
#Hx TIA
Continue statins, resumed Eliquis.
#Hypothyroidism
-Continue [place] Thyroid 60 mg daily
#Mitral regurgitation hx
#Diverticulitis status post bowel resection Hx
DVT prophylaxis
Total time spent to see the patient, examine the patient on the floor, review data and lab results, discuss treatment plan with patient, , consultants, nursing staff around 55 minutes
Anticipated Discharge: Within 24 hours
Subjective/Interval History
-
Date of Service: April 08, 2024
No complaints
Slept well
Hip pain upon moving
Objective Data
-
Labs:
Laboratory Results
04/08/24
04:56
WBC 10.9 H
Hgb 9.4 L D
Hct 27.9 L
Plt Count 184
Sodium 135
Potassium 3.7
Chloride 107
Carbon Dioxide 23
BUN 19 H
Creatinine 0.6
Glucose 132 H
Calcium 8.0 L
Vital Signs:
Vital Signs
Temp Pulse Resp BP Pulse Ox
98.2 F 103 18 117/49 99
04/08/24 07:25 04/08/24 07:25 04/08/24 07:25 04/08/24 09:15 04/08/24 07:25
I&O
04/07/24 04/08/24 04/09/24
06:59 06:59 06:59
Intake Total 2089 1350 / 1350
Output Total 1120 / 1120 1450 / 1450
Balance 970 / 970 -100 / -100
[2024-04-08] MEDS: ProAmatine 5 MG PO (11:48)
--- NOTE | 2024-04-08 13:25 | W.PN.CARDCBS ---
Today's Communication / Plan
-
Stable cardiac status, we will sign off, please recall as needed
Impression / Plan
-
Office Supervisor: Dr. Ugo Lennon of [facility]
Impression:
Right peritrochanteric femoral fracture
Permanent atrial fibrillation/atypical flutter
CAD status post PCI
PVCs
Hypertension
Hypercholesterolemia
History of TIA
Hypothyroidism
Mitral regurgitation
Peripheral neuropathy
Plan:
Postop day ORIF right hip following mechanical fall and right peritrochanteric femoral fracture
Asymptomatic from a cardiac perspective
History of paroxysmal atrial fibrillation, currently in rate controlled AFib
Cont metoprolol for rate control
Cont Eliquis for cardioembolic ppx
We will sign off, patient to follow-up with her primary hospital unit clerk following discharge
Progress Note - Office Supervisor
Subjective
Date of Service: April 08, 2024
No acute overnight events. Patient is resting comfortably out of bed to chair. No chest pain or shortness of breath.
Objective
Labs:
04/08/24 04:56
04/08/24 04:56
Labs
Hgb 9.4 g/dL (12.0-16.0) L D 04/08/24 04:56
Hct 27.9 % (37.0-47.0) L 04/08/24 04:56
Plt Count 184 10^3/uL (130-400) 04/08/24 04:56
Sodium 135 mmol/L (135-145) 04/08/24 04:56
Potassium 3.7 mmol/L (3.5-5.1) 04/08/24 04:56
BUN 19 mg/dl (7-17) H 04/08/24 04:56
Creatinine 0.6 mg/dL (0.6-1.0) 04/08/24 04:56
Glucose 132 mg/dl (70-99) H 04/08/24 04:56
Vital Signs and I&O:
Vital Signs
Temp Pulse Resp BP Pulse Ox
98.1 F 97 18 84/49 98
04/08/24 11:05 04/08/24 11:05 04/08/24 11:05 04/08/24 11:48 04/08/24 11:05
Vital Signs
Temp Pulse Resp BP Pulse Ox
98.1 F 97 18 84/49 98
04/08/24 11:05 04/08/24 11:05 04/08/24 11:05 04/08/24 11:48 04/08/24 11:05
Intake & Output
04/06/24 04/07/24 04/08/24 04/09/24
06:59 06:59 06:59 06:59
Intake Total 1700 / 1700 2090 / 2090 1350 / 1350
Output Total 480 / 480 1120 / 1120 1450 / 1450
Balance 1220 / 1220 970 / 970 -100 / -100
Physical Exam
Physical Exam
Gen: NAD, AA
HEENT: NC/AT, sclera anicteric
Neck: No JVD
CV: Irregularly irregular, 2 out of 6 systolic ejection murmur at the base
Lungs: CTAB
Abd: S/ND
Ext: Trace LE edema
Skin: Warm, dry
Neuro: Non-focal
--- NOTE | 2024-04-08 15:53 | CM ---
Initial assessment doocumented.
Siria was admitted with fx R intertrochanteric femur fracture when she was trying to put groceries away.
Kisha will benefit from transfer to short term rehab facility with return to home and likely home health support.
Referrals sent to 9 facilities with no responses in [facility]. Calls made to [facility] - no available bed, [facility] - no available bed, [facility] (will not take outside admissions); [facility] (does not take [employer]), [facility] (does not
take [employer]),
Call and voicemail left to: [facility], [facility].
Will continue to pursue SNF transfer.
Plan: Transfer to SNF for rehabilitation and eventual return home.
[2024-04-08] MEDS: ELIQUIS 5 MG PO (20:21)
[2024-04-08] MEDS: LIPITOR 30 MG PO (22:02)
[2024-04-09] VITALS (8 sets, daily range): BP systolic 102–124; BP diastolic 48–77; PULSE 95; O2SAT 98
--- NOTE | 2024-04-09 03:26 | W.PN.UPDATE ---
Update Note
Progress Note Update
-Patient was noted with big bruises area on groin and RT inner thing, also hematoma was noted on the back of the RT knees which is new and was not present at the beginning if shift.
-Surgery site was covered with dressing that shows small amount of drainage. Patient denied pain, denied trauma to her groin or RT inner thigh area. RLE with normal sensation, pulse and cap refill.
-Patient restarted Eliquis last night will place on hold for now.
-Will check hgb level.
--- NOTE | 2024-04-09 03:42 | PTCARENOTE ---
During walking rounds, I noticed purple and red bruising to pt's perineum/ pubic area extending down back of R thigh. This RN palpated a firm, possible hematoma on R thigh.
VSS: Afib on monitor- heart rate tachycardic 120-140s during exertion; BP 113/61 HR 78, pox 98% RA. No c/o pain.
Whitney IMPROVEMENT DIRECTOR was notified at 0230. Per order, Eliquis was restarted 04/08/24 at 1999 and Nicole removed at 1999 per order. Whitney IMPROVEMENT DIRECTOR placed Eliquis on hold and ordered STAT CBC and BMP.
Dr. Iglesias notified and order to ice affected area.
[2024-04-09 04:13] LABS: % Basophils 0.1 % (0-2); % Eosinophils 0.7 % (0-6); % Immature Granulocytes 0.4 % (0-0.5); % Lymphocytes 18.8 % (20.5-51.1); % Monocytes 9.6 % (1.7-9.3); % Neutrophils 70.4 % (42.2-75.2); Absolute Eosinophils 0.1 10^3/uL (0-0.7); Absolute Lymphocytes 1.9 10^3/uL (1.2-3.4); Hematocrit 24.1 % (37.0-47.0); Hemoglobin 8.3 g/dL (12.0-16.0); Mean Corp Hgb Conc. 34.4 g/dL (33.0-37.0); Mean Corpuscular Hgb 30.6 pg (27.0-31.0); Mean Corpuscular Volume 88.9 fL (81.0-99.0); Nucleated Red Blood Cells % 0.3 %; Platelet Count 193 10^3/uL (130-400); Red Blood Cell Count 2.71 10^6/uL (4.20-5.40); Red Cell Dist. Width 15.5 % (11.5-14.5); White Blood Cell Count 9.9 10^3/uL (4.8-10.8)
[2024-04-09 04:43] LABS: Blood Urea Nitrogen 17 mg/dl (7-17); Calcium 7.9 mg/dl (8.4-10.2); Carbon Dioxide 23 mmol/L (22-30); Chloride 108 mmol/L (98-107); Estimated Creatinine Clearance 72 ml/min; Glucose 115 mg/dl (70-99); Potassium 3.6 mmol/L (3.5-5.1); Sodium 135 mmol/L (135-145); eGFR > 60.00
[2024-04-09 07:23] LABS: Cortisol, Random 12.6 ug/dl
--- NOTE | 2024-04-09 08:40 | W.PN.HOSP.TC ---
Today's Communication/Plan
-
Not ready to dc today, likely tomorrow
Recheck H &H. Might need another unit of blood
Assessment / Plan
Assessment / Plan
Physical Exam
-
General: Well Developed and No Apparent Distress
HEENT: Normocephalic, Atraumatic, Moist Mucous Membranes and Oxygen
Respiratory: Clear to Auscultation
Cardiac: Regular Rhythm and S1/S2; Negative Murmur, Rub or Gallop
GI: Soft, Nontender, Nondistended and Normal Bowel Sounds; Negative Organomegaly
Rectal: No rectal bleeding
Musculoskeletal: No Clubbing, No Cyanosis, No Edema and Other (R hip aquacell dressing -ice pack)
Skin: Negative Rash
Neuro: Awake and Nonfocal/Grossly Intact
Psych: Calm
#Right femur intertrochanteric fracture s/p ORIF by Dr Iglesias on 04/06/24
#Chronic ambulatory dysfunction
- change to Tylenol TID
-IV morphine as needed pain, Tylenol as needed
-IV Zofran as needed
-PT/OT/case management consult post op
-dc Lovenox for dvt ppx. restarted Eliquis
- Appreciate ortho help
# Acute blood loss anemia from fracture and bruising related to the fall. No hematoma felt in lower limb felt
Due to risk of stroke, would continue Eliquis. The daughter reported to me over the phone that patient had a brief speech difficulty , could be related to low BP she had at the time or TIA, hard to tell. But pt has hx of TIAs
Given two units of blood. Consent is signed.
#Hypotension secondary to combination of medication/ hypovolemic and hemorrhagic shock
Given two units of blood with no reaction. HGB at around 8 at 4 am today recheck noon time today
Resumed BB
Wean off Midodrine
Normal AM cortisol level.
-ECHO 04/07/24 showed LVEF 65-70%, mild MR, mild to moderate , mild TR, estimated pulmonary artery pressure of 42 mmHg.
#Urinary retention
-straight cath x 3
-s/p Nicole 04/06/24 and removed 04/08- so far able to void , started on Flomax, encourage ambulation.
#Atrial fibrillation-paroxysmal
-Resumed Eliquis. Discussed with orthopedic doctor
-Patient follows with cardiology�Dr. Fajardo at [facility]
#CAD/cardiac stents x1 2005
No chest pain
-Continue beta-leonardo, statin
#HLD
-Continue Zetia 10 mg daily, simvastatin 60 mg at bedtime
#Hx TIA
Continue statins, resumed Eliquis.
#Hypothyroidism
-Continue [place] Thyroid 60 mg daily
#Mitral regurgitation hx
#Diverticulitis status post bowel resection Hx
DVT prophylaxis
Total time spent to see the patient, examine the patient on the floor, review data and lab results, discuss treatment plan with patient, daughter,, consultants, nursing staff around 59 minutes
Anticipated Discharge: Within 24 hours
Subjective/Interval History
-
Date of Service: April 09, 2024
No chest pain
No sob
Objective Data
-
Labs:
Laboratory Results
04/09/24 04/09/24
04:04 06:00
WBC 9.9 Cancelled
Hgb 8.3 L Cancelled
Hct 24.1 L Cancelled
Plt Count 193 Cancelled
Sodium 135
Potassium 3.6
Chloride 108 H
Carbon Dioxide 23
BUN 17
Creatinine 0.5 L
Glucose 115 H
Calcium 7.9 L
Vital Signs:
Vital Signs
Temp Pulse Resp BP Pulse Ox
97.7 F 92 16 110/52 94
04/09/24 07:32 04/09/24 07:32 04/09/24 07:32 04/09/24 07:32 04/09/24 07:32
I&O
04/08/24 04/09/24 04/10/24
06:59 06:59 06:59
Intake Total 1350 / 1350 1260 / 1260
Output Total 1450 / 1450 900 / 900
Balance -100 / -100 360 / 360
[2024-04-09] MEDS: VISBIOME 1 CAP PO (09:35)
[2024-04-09] MEDS: NON-FORMULARY ITEM 1 UNIT PO (09:35)
[2024-04-09] MEDS: TYLENOL 1000 MG PO ×3 (09:35→22:20)
[2024-04-09] MEDS: ZETIA 10 MG PO (09:36)
[2024-04-09] MEDS: FLOMAX 0.400000000000000022 MG PO (09:36)
[2024-04-09] MEDS: ELIQUIS 5 MG PO ×2 (09:36→20:49)
[2024-04-09] MEDS: TOPROL XL PO (09:37)
[2024-04-09 12:10] LABS: Hematocrit 26.2 % (37.0-47.0); Hemoglobin 8.8 g/dL (12.0-16.0)
[2024-04-09] MEDS: LIPITOR 30 MG PO (22:23)
[2024-04-10] VITALS (8 sets, daily range): BP systolic 92–147; BP diastolic 48–76; PULSE 113; O2SAT 99
[2024-04-10 06:05] LABS: Mean Corp Hgb Conc. 33.3 g/dL (33.0-37.0); Mean Corpuscular Hgb 30.7 pg (27.0-31.0); Mean Corpuscular Volume 92.2 fL (81.0-99.0); Mean Platelet Volume 8.9 fL (7.4-10.4); Platelet Count 228 10^3/uL (130-400); Red Blood Cell Count 2.93 10^6/uL (4.20-5.40); Red Cell Dist. Width 15.7 % (11.5-14.5); White Blood Cell Count 9.5 10^3/uL (4.8-10.8)
[2024-04-10] MEDS: FLOMAX 0.400000000000000022 MG PO (08:26)
[2024-04-10] MEDS: TYLENOL 1000 MG PO ×2 (08:26→21:35)
[2024-04-10] MEDS: NON-FORMULARY ITEM 1 UNIT PO (08:27)
[2024-04-10] MEDS: VISBIOME 1 CAP PO (08:27)
[2024-04-10] MEDS: ELIQUIS 5 MG PO ×2 (08:27→19:18)
[2024-04-10] MEDS: ZETIA 10 MG PO (08:27)
[2024-04-10] MEDS: TOPROL XL 25 MG PO (08:27)
--- NOTE | 2024-04-10 08:59 | W.DCSUMMARY ---
Discharge Summary
Discharge Data
Date of Admission: 04/04/24
Date of Discharge: 04/11/24
-
Pending Results: No
Hospital Course
88 years old female who presented after mechanical fall. She sustained right femur intertrochanteric fracture. Patient was taking Eliquis. Head scan did not show acute intracranial abnormality. Patient was evaluated by orthopedic doctor. She
underwent open reduction and internal fixation by Dr. Iglesias on April 06, 2024. No complications reported. Surgery was delayed to decrease risk of bleeding after Eliquis washout. Patient was followed by multicraft operator. She was noted to have
hypotension, which was thought to be secondary combination of medications, hypovolemia and possible anemia. She had acute blood loss anemia from fracture and the bruising exacerbated by Eliquis use. Patient was given 2 units of blood transfusion
without reaction. Echocardiogram showed normal left ventricular ejection fraction around 65%, mild mitral regurgitation, mild to moderate aortic stenosis, mild tricuspid regurgitation with estimated pulmonary artery pressure of 42 mmHg. Blood
pressure medications were held. Normal a.m. cortisol level. Medications were resumed gradually including beta-blockers. Patient was placed back on Eliquis with stabilizing of hemoglobin. Hemoglobin upon discharge was 9. Patient had acute
urinary retention. She was started on Flomax and Nicole catheter after few attempts of straight catheterization. Subsequently she passed voiding trial and Nicole catheter was discontinued. Patient remained hemodynamically stable and was discharged
to senior living facility in a stable condition.
Physical Exam
-
General: Well Developed and No Apparent Distress
HEENT: Normocephalic, Atraumatic, Moist Mucous Membranes and Oxygen
Respiratory: Clear to Auscultation
Cardiac: Regular Rhythm and S1/S2; Negative Murmur, Rub or Gallop
GI: Soft, Nontender, Nondistended and Normal Bowel Sounds; Negative Organomegaly
Rectal: No rectal bleeding
Musculoskeletal: No Clubbing, clear dressing right hip area with bruising noted.
Skin: Negative Rash. Bruising of skin lower trunk and right LE.
Neuro: Awake and Nonfocal/Grossly Intact
Psych: Calm, no agitation.
Total discharge time spent to see the patient, examine the patient on the floor, review data and lab results, discuss discharge plan with patient, nursing staff around 65 minutes
Discharge Plan
-
Patient Disposition: Longterm/SNF
Discharge Diagnosis/Procedures: Right intertrochanteric femur fracture status post internal fixation by Dr. Iglesias on 04/06/24
Acute blood loss anemia exacerbated by use of Eliquis
Hypotension secondary combination of hemorrhagic shock, hypovolemia and medications. Normal a.m. cortisol level
Urinary retention, resolved. Can discontinue Flomax upon resuming more activities
Paroxysmal atrial fibrillation, Eliquis was resumed
Coronary artery disease
History of TIA
Hyperlipidemia
Hypothyroidism
Diet: As tolerated
Referrals:
Tory Pollock MD [Family Provider] -
Erwin Iglesias MD [Active] - in two to three weeks
Prescriptions:
New
bisacodyl 10 mg Suppository
10 mg MA [id number] PRN (Reason: constipation) Qty: 12 0RF
tamsulosin 0.4 mg Capsule
0.4 mg PO DAILY Qty: 7 0RF
alum-mag hydroxide-simeth [Antacid-[place]] 200-200-20 mg/5 mL Suspension
30 ml PO Q4HPRN PRN (Reason: indigestion) Qty: 3000 0RF
polyethylene glycol 3350 [HealthyLax] 17 gram Powder In Packet
17 g PO DAILYPRN PRN (Reason: constipation) Qty: 14 0RF
sennosides-docusate sodium [Stool Softener-Stimulant Laxat] 8.6-50 mg Tablet
1 tab PO BIDPRN PRN (Reason: constipation) Qty: 14 0RF
midodrine 5 mg Tablet
5 mg PO Q6HPRN PRN (Reason: SBP less than 100) Qty: 10 0RF
acetaminophen [Tylenol Extra Strength] 500 mg Tablet
1,000 mg PO TID Qty: 14 0RF
Continued
therapeutic multivitamin Tablet
1 tab PO DAILY
metoprolol succinate 25 mg Tablet Extended Release 24 Hr
25 mg PO DAILY
ezetimibe 10 mg Tablet
10 mg PO DAILY
Visbiome 112.5 billion cell Capsule
1 cap PO DAILY
thyroid (pork) [[place] Thyroid] 60 mg Tablet
60 mg PO DAILY
Eliquis 5 mg Tablet
5 mg PO BID
losartan 50 mg Tablet
50 mg PO QPM Qty: 10 0RF
Rx Instructions:
hold if sbp less than 110
Changed
simvastatin 20 mg Tablet
40 mg PO HS Qty: 10 0RF
Discontinued
ascorbic acid (vitamin C) [Vitamin C] 1,000 mg Tablet
1,000 mg PO DAILY
coenzyme Q10 [CoQ-10] 100 mg Capsule
100 mg PO Q72H
zinc sulfate 50 mg zinc (220 mg) Capsule
50 mg PO DAILY
Discharge Orders:
Discharge Patient (As Directed); Ordered 04/10/24
Ordered By: Beto Lockwood
Discharge Date and Time
Discharge Date/Time: 04/11/24 18:01
Print Language: LITHUANIAN
--- NOTE | 2024-04-10 14:54 | CM ---
Addendum entered by Tracey Nixon 04/10/24 15:56:
[employer] insurance auth initiated via [employer]. PENDING REFERENCE # [id number]. Supporting documentation faxed to Julia @ [phone].
Original Note:
Attempting to find available STR bed for patient. Barriers are [employer] insurance and no bed availability. This CM called the facilities again and no available beds in facilities that family requested. This CM spoke with liaison for [facility], [facility] and [facility]. Each of these facilities do have an available bed. Gave patient and Medicare[employer] list for these facilities. Patient and deferred to daughter. Spoke with daughter who has chosen [facility].
Will need insurance auth initiated. Liaison for [facility] notified.
[2024-04-10] MEDS: TYLENOL PO (15:12)
--- NOTE | 2024-04-10 16:38 | W.PN.HOSP.TC ---
Today's Communication/Plan
-
dc
Assessment / Plan
Assessment / Plan
Physical Exam
-
General: Well Developed and No Apparent Distress
HEENT: Normocephalic, Atraumatic, Moist Mucous Membranes and Oxygen
Respiratory: Clear to Auscultation
Cardiac: Regular Rhythm and S1/S2; Negative Murmur, Rub or Gallop
GI: Soft, Nontender, Nondistended and Normal Bowel Sounds; Negative Organomegaly
Rectal: No rectal bleeding
Musculoskeletal: No Clubbing, No Cyanosis, No Edema and Other (R hip aquacell dressing -ice pack)
Skin: Negative Rash
Neuro: Awake and Nonfocal/Grossly Intact
Psych: Calm
#Right femur intertrochanteric fracture s/p ORIF by Dr Iglesias on 04/06/24
#Chronic ambulatory dysfunction
- change to Tylenol TID
-IV morphine as needed pain, Tylenol as needed
-IV Zofran as needed
-PT/OT/case management consult post op
-dc Lovenox for dvt ppx. restarted Eliquis
- Appreciate ortho help
# Acute blood loss anemia from fracture and bruising related to the fall. No hematoma felt in lower limb felt
Due to risk of stroke, would continue Eliquis. The daughter reported to me over the phone that patient had a brief speech difficulty , could be related to low BP she had at the time or TIA, hard to tell. But pt has hx of TIAs
Given two units of blood. Consent is signed.
repeat HGB is 9, higher than yesterday
#Hypotension secondary to combination of medication/ hypovolemic and hemorrhagic shock
Given two units of blood with no reaction. HGB at around 8 at 4 am today recheck noon time today
Resumed BB
Wean off Midodrine
Normal AM cortisol level.
-ECHO 04/07/24 showed LVEF 65-70%, mild MR, mild to moderate , mild TR, estimated pulmonary artery pressure of 42 mmHg.
#Urinary retention
-straight cath x 3
-s/p Nicole 04/06/24 and removed 04/08- so far able to void , started on Flomax, encourage ambulation.
#Atrial fibrillation-paroxysmal
-Resumed Eliquis. Discussed with orthopedic doctor
-Patient follows with cardiology�Dr. Fajardo at [facility]
#CAD/cardiac stents x1 2005
No chest pain
-Continue beta-leonardo, statin
#HLD
-Continue Zetia 10 mg daily, simvastatin 60 mg at bedtime
#Hx TIA
Continue statins, resumed Eliquis.
#Hypothyroidism
-Continue [place] Thyroid 60 mg daily
#Mitral regurgitation hx
#Diverticulitis status post bowel resection Hx
DVT prophylaxis
Total time spent to see the patient, examine the patient on the floor, review data and lab results, discuss treatment plan with patient, daughter,, consultants, nursing staff around 45 minutes
Anticipated Discharge: Today
Subjective/Interval History
-
Date of Service: April 10, 2024
Doing well
No complaints.
denies pain or sob
No chest pain
Less leg pain
Objective Data
-
Labs:
Laboratory Results
04/10/24
04:55
WBC 9.5
Hgb 9.0 L
Hct 27.0 L
Plt Count 228
Vital Signs:
Vital Signs
Temp Pulse Resp BP Pulse Ox
98.2 F 89 18 97/48 100
04/10/24 15:10 04/10/24 15:10 04/10/24 15:10 04/10/24 15:10 04/10/24 15:10
I&O
04/09/24 04/10/24 04/11/24
06:59 06:59 06:59
Intake Total 1260 / 1260 1500 / 1500
Output Total 900 / 900
Balance 360 / 360 1500 / 1500
[2024-04-10] MEDS: LIPITOR 30 MG PO (21:35)
[2024-04-11 02:52] VITALS: BP 125/65
--- NOTE | 2024-04-11 05:30 | PTCARENOTE ---
r proximal aquacel saturated w/ dark bloody drainage. metal coater operator notified. dressing enforced w/ abd. will monitor.
[2024-04-11 07:10] VITALS: BP 120/61
[2024-04-11] MEDS: TOPROL XL 25 MG PO (07:57)
[2024-04-11] MEDS: VISBIOME 1 CAP PO (07:57)
[2024-04-11] MEDS: ELIQUIS 5 MG PO (07:57)
[2024-04-11] MEDS: FLOMAX 0.400000000000000022 MG PO (07:57)
[2024-04-11] MEDS: NON-FORMULARY ITEM 1 UNIT PO (07:57)
[2024-04-11] MEDS: TYLENOL 1000 MG PO (07:57)
[2024-04-11] MEDS: ZETIA 10 MG PO (07:57)
--- NOTE | 2024-04-11 09:02 | PTCARENOTE ---
Pt with increased drainage to R hip aquacels and increased bruising noted to pelvic area. Ok to change top dressing (saturated) per Yolette Iglesias. OK to continue eliquis per Dr Lockwood and Dr Iglesias. Care remains ongoing.
--- NOTE | 2024-04-11 09:11 | W.PN.HOSP.TC ---
Today's Communication/Plan
-
dc
Assessment / Plan
Assessment / Plan
Physical Exam
-
General: Well Developed and No Apparent Distress
HEENT: Normocephalic, Atraumatic, Moist Mucous Membranes and Oxygen
Respiratory: Clear to Auscultation
Cardiac: Regular Rhythm and S1/S2; Negative Murmur, Rub or Gallop
GI: Soft, Nontender, Nondistended and Normal Bowel Sounds; Negative Organomegaly
Rectal: No rectal bleeding
Musculoskeletal: No Clubbing, No Cyanosis, No Edema and Other (R hip aquacell dressing -ice pack)
Skin: Negative Rash
Neuro: Awake and Nonfocal/Grossly Intact
Psych: Calm
#Right femur intertrochanteric fracture s/p ORIF by Dr Iglesias on 04/06/24
#Chronic ambulatory dysfunction
- change to Tylenol TID
-IV morphine as needed pain, Tylenol as needed
-IV Zofran as needed
-PT/OT/case management consult post op
-dc Lovenox for dvt ppx. restarted Eliquis
- Appreciate ortho help
# Acute blood loss anemia from fracture and bruising related to the fall. No hematoma felt in lower limb felt
Due to risk of stroke, would continue Eliquis. The daughter reported to me over the phone that patient had a brief speech difficulty , could be related to low BP she had at the time or TIA, hard to tell. But pt has hx of TIAs
Given two units of blood. Consent is signed.
repeat HGB is 9, higher than yesterday
#Hypotension secondary to combination of medication/ hypovolemic and hemorrhagic shock
Given two units of blood with no reaction. HGB at around 8 at 4 am today recheck noon time today
Resumed BB
Wean off Midodrine
Normal AM cortisol level.
-ECHO 04/07/24 showed LVEF 65-70%, mild MR, mild to moderate , mild TR, estimated pulmonary artery pressure of 42 mmHg.
#Urinary retention
-straight cath x 3
-s/p Nicole 04/06/24 and removed 04/08- so far able to void , started on Flomax, encourage ambulation.
#Atrial fibrillation-paroxysmal
-Resumed Eliquis. Discussed with orthopedic doctor
-Patient follows with cardiology�Dr. Fajardo at [facility]
#CAD/cardiac stents x1 2005
No chest pain
-Continue beta-leonardo, statin
#HLD
-Continue Zetia 10 mg daily, simvastatin 60 mg at bedtime
#Hx TIA
Continue statins, resumed Eliquis.
#Hypothyroidism
-Continue [place] Thyroid 60 mg daily
#Mitral regurgitation hx
#Diverticulitis status post bowel resection Hx
DVT prophylaxis
Total time spent to see the patient, examine the patient on the floor, review data and lab results, discuss treatment plan with patient, daughter,, consultants, nursing staff around 45 minutes
Anticipated Discharge: Today
Subjective/Interval History
-
Date of Service: April 11, 2024
No chest pain, no sob
No headache
Objective Data
-
Vital Signs:
Vital Signs
Temp Pulse Resp BP Pulse Ox
98.2 F 94 18 120/61 96
04/11/24 07:10 04/11/24 07:10 04/11/24 07:10 04/11/24 07:10 04/11/24 07:10
I&O
04/10/24 04/11/24 04/12/24
06:59 06:59 06:59
Intake Total 1500 / 1500 960 / 960
Balance 1500 / 1500 960 / 960
--- NOTE | 2024-04-11 09:35 | CM ---
CM received call from Malaika at [facility], reports received information that case was to be expedited however, have not received clinicals. CM confirmed fax number, , PENDING REFERENCE # [id number]. CM confirmed SNF is for [facility], provided NPI. CM refaxed clinicals to attention: Malaika.
Plan; [facility], refaxed clinicals for review.
--- NOTE | 2024-04-11 10:50 | CM ---
Addendum entered by Pranay Robert 04/11/24 12:32:
An auth fro [employer] has been obtained, Pt is approved for SNF level of care at [facility] from today 04/11/24 till 04/21/24 with LCD and NRF 04/21/24. Auth is: [id number]. For additional days fax: [phone]. Auth information forwarded to
[facility] liaison and she confirmed that pt is accepted for admission today.
Pt's is aware and he stated he is coming to soon.
[facility] nursing report: [phone]
Discharge instructions fax: [phone].
D/C plan: [facility].
Original Note:
CM following re: discharge planning.
Reviewed pt's chart, met with pt.
Pt is aware she will be discharged to [facility], expressed her anxious feeling and asked when it will happen. CM explained that awaiting for [employer] auth and pt expressed her understanding. IMM reviewed, placed on chart, pt has a copy.
CM called [employer] earlier this morning around 9:00 a,m and on automatic virtual respond was: pending status. later, XOCHITL was informed from the other CM that [employer] called and requested pt's clinical and stated they did not receive and pt's clinical was
sent.
[facility] completed and left with .
[facility] nursing report: [phone]
Discharge instructions fax: [phone].
D/C plan: [facility] once auth from [employer] obtained.
CM will follow to assist pt with discharge to [facility].
[2024-04-11 11:15] VITALS: BP 103/63
[2024-04-11] MEDS: TYLENOL PO (15:09)
[2024-04-11 15:10] VITALS: BP 108/54
== END 2024-04-11 18:01 | DRG 480 ==
LOC: 2 SOUTH 21:10
PROVIDERS: Clinical Nurse Specialist Family Health; Nurse Practitioner Family; Physician Assistant; ADMITTING PHYSICIAN Internal Medicine; ATTENDING PHYSICIAN Internal Medicine; CONSULT PHYSICIAN Internal Medicine Cardiovascular Disease; CONSULT PHYSICIAN Orthopaedic Surgery; EMERGENCY PHYSICIAN Emergency Medicine; FAMILY PHYSICIAN Internal Medicine
PROC: 0QS606Z Reposition Right Upper Femur with Intramedullary Internal Fixation Device, Open Approach (ICD-10-PCS; 2024-04-06)
PROC: 30233N1 Transfusion of Nonautologous Red Blood Cells into Peripheral Vein, Percutaneous Approach (ICD-10-PCS; 2024-04-07)
DX: M80.051A Age-related osteoporosis with current pathological fracture, right femur, initial encounter for fracture (principal); R57.1 Hypovolemic shock; R57.8 Other shock; I48.21 Permanent atrial fibrillation; D62 Acute posthemorrhagic anemia; I48.4 Atypical atrial flutter; D68.32 Hemorrhagic disorder due to extrinsic circulating anticoagulants; S72.141A Displaced intertrochanteric fracture of right femur, initial encounter for closed fracture; I08.3 Combined rheumatic disorders of mitral, aortic and tricuspid valves; I10 Essential (primary) hypertension; E03.9 Hypothyroidism, unspecified; S09.90XA Unspecified injury of head, initial encounter; I95.2 Hypotension due to drugs; G62.9 Polyneuropathy, unspecified; W01.0XXA Fall on same level from slipping, tripping and stumbling without subsequent striking against object, initial encounter; X50.0XXA Overexertion from strenuous movement or load, initial encounter; Y92.000 Kitchen of unspecified non-institutional (private) residence as the place of occurrence of the external cause; I25.10 Atherosclerotic heart disease of native coronary artery without angina pectoris; I25.2 Old myocardial infarction; E78.00 Pure hypercholesterolemia, unspecified; I49.3 Ventricular premature depolarization; T40.2X5A Adverse effect of other opioids, initial encounter; T45.515A Adverse effect of anticoagulants, initial encounter; K59.00 Constipation, unspecified; K30 Functional dyspepsia; R33.9 Retention of urine, unspecified; Z79.01 Long term (current) use of anticoagulants; Z79.899 Other long term (current) drug therapy; Z86.73 Personal history of transient ischemic attack (TIA), and cerebral infarction without residual deficits; Z87.19 Personal history of other diseases of the digestive system; Z90.49 Acquired absence of other specified parts of digestive tract; Z95.5 Presence of coronary angioplasty implant and graft; Z88.0 Allergy status to penicillin; Z82.3 Family history of stroke; Z87.440 Personal history of urinary (tract) infections
CPT/HCPCS: 70450; 73502; 73560; 76000; 80048; 80053; 82533; 85014; 85018; 85025; 85027; 86850; 86900; 86901; 86920; 93005; 93306; 96361; 96374; 97116; 97162; 97166; 97530; 97535; 99285; C1713; C1769; P9016